=== PATIENT | female | born 1990 | race Caucasian/White ===

== ENCOUNTER 2017-09-02 14:30 | Emergency (ER) | payer OTHER | END 2017-09-02 14:54 | disposition home or self-care (01) | LOC: NAV ERS 14:30 | DX: Z57.8 Occupational exposure to other risk factors (principal) | CPT/HCPCS: 99283 ==

== ENCOUNTER → 2019-01-03 | Day surgery (SDC) | payer OTHER ==
[~2019-01-03] MED LIST: Adacel (T-DAP) 0.5 ML SYRINGE ONE
== END ==
LOC: NAV ER/OP 09:01
PROVIDERS: ATTEND Obstetrics & Gynecology
DX: Z23 Encounter for immunization (principal)
CPT/HCPCS: 90715